=== PATIENT | female | born 1960 | race Caucasian/White ===

== ENCOUNTER 2019-11-15 12:01 | Observation (INO) | payer BC ==
[2019-11-15 13:07] LABS: Absolute Lymphocytes (CBC) 1.3 K/uL (0.7-4.9); Basophils % 0.7 % (0-1.3); Lymphocytes % 27.1 % (15.3-44.8); MPV 9.4 fL (7.6-11.3); RBC Red Blood Cell Count 4.19 M/uL (3.86-4.86)
--- NOTE | 2019-11-15 13:08 | RAD REPORT ---
EXAM DESCRIPTION: RAD - Chest Single View - 11/15/2019 1:01 pm CLINICAL HISTORY: CHEST PAIN Chest pain. COMPARISON: No comparisons FINDINGS: Portable technique limits examination quality. The lungs are grossly clear. The heart is normal in size. No displaced fractures. IMPRESSION: No acute intrathoracic process suspected.
[2019-11-15 13:09] LABS: Protime INR 0.97
[2019-11-15 13:26] LABS: ALT/SGPT 26 U/L (12-78); AST/SGOT 19 U/L (15-37); Albumin 3.5 g/dL (3.4-5.0); Alkaline Phosphatase 62 U/L (45-117); BUN Blood Urea Nitrogen 14 mg/dL (7-18); Bicarbonate 28 mmol/L (21-32); Bilirubin Direct < 0.1 mg/dL (0-0.2); Bilirubin Total 0.3 mg/dL (0.2-1.0); Glucose Level 91 mg/dL (74-106); NT PRO-BNP 38 pg/mL (<125); Potassium 3.9 mmol/L (3.5-5.1); Protein, Total 7.7 g/dL (6.4-8.2); Sodium Level 142 mmol/L (136-145); Troponin (Emerg Dept Use Only) < 0.02 ng/mL (0.0-0.045)
--- NOTE | 2019-11-15 13:57 | ER ---
Nurse's Notes [facility] Name: Abi Jo Age: 59 yrs Sex: Female : 1960 Arrival Date: 11/15/2019 Time: 12:04 Bed 18 Private MD: Diagnosis: Chest pain, unspecified Presentation: 11/14 12:14 Chief complaint: Patient states: Intermittent chest discomfort that began 2 days ago. ss Sent by Dr. Armstrong for further evaluation. Coronavirus screen: Proceed with normal triage. Patient denies a cough. Patient denies shortness of breath or difficulty breathing. Patient denies measured and/or subjective temperature greater than 100.4F prior to today's visit. Patient denies travel on a cruise ship or to a country the [facility] currently lists as an affected area. Patient denies contact with known and/or suspected case of COVID-19. Ebola Screen: Patient denies exposure to infectious person. Patient denies travel to an Ebola-affected area in the 21 days before illness onset. Initial Sepsis Screen: Does the patient meet any 2 criteria? No. Patient's initial sepsis screen is negative. Does the patient have a suspected source of infection? No. Patient's initial sepsis screen is negative. Risk Assessment: Do you want to hurt yourself or someone else? Patient reports no desire to harm self or others. Onset of symptoms was November 13, 2019. 12:14 Method Of Arrival: Ambulatory ss 12:14 Acuity: SCOTT 3 ss Historical: - Allergies: 12:16 No Known Allergies; ss - Immunization history:: Adult Immunizations up to date. - Social history:: Smoking status: Patient denies any tobacco usage or history of. - Family history:: not pertinent. - Hospitalizations: : No recent hospitalization is reported. Screenin:24 Abuse screen: Denies threats or abuse. Nutritional screening: No deficits noted. tw2 Tuberculosis screening: No symptoms or risk factors identified. Fall Risk None identified. Assessment: 12:25 Pain: Pain began 2-3 days ago. tw2 12:25 General: Appears in no apparent distress. obese, well groomed, Behavior is calm, tw2 cooperative, appropriate for age. Pain: Complains of pain in chest Pain radiates to left arm. Neuro: Level of Consciousness is awake, alert, obeys commands, Oriented to person, place, time. Cardiovascular: Reports chest pain, Denies shortness of breath, Heart tones S1 S2 Patient's skin is warm and dry. Respiratory: Airway is patent Respiratory effort is even, unlabored, Respiratory pattern is regular, symmetrical, Breath sounds are clear bilaterally. GI: No signs and/or symptoms were reported involving the gastrointestinal system. Abdomen is round non-distended, obese, Bowel sounds present X 4 quads. : No signs and/or symptoms were reported regarding the genitourinary system. EENT: No signs and/or symptoms were reported regarding the EENT system. Derm: No signs and/or symptoms reported regarding the dermatologic system. Musculoskeletal: Range of motion: intact in all extremities. 14:15 Reassessment: Patient appears in no apparent distress at this time. No changes from tw2 previously documented assessment. Patient and/or family updated on plan of care and expected duration. Pain level reassessed. Patient is alert, oriented x 3, equal unlabored respirations, skin warm/dry/pink. Harshil Campbell, ADMITTING COUNSELOR at bedside at this time, pt states "i really didn't plan on staying but i will talk to him about it". 15:23 Reassessment: Patient appears in no apparent distress at this time. No changes from tw2 previously documented assessment. Patient and/or family updated on plan of care and expected duration. Pain level reassessed. Patient is alert, oriented x 3, equal unlabored respirations, skin warm/dry/pink. 16:30 Reassessment: Patient appears in no apparent distress at this time. No changes from tw2 previously documented assessment. Patient and/or family updated on plan of care and expected duration. Pain level reassessed. Patient is alert, oriented x 3, equal unlabored respirations, skin warm/dry/pink. 17:30 Reassessment: Patient appears in no apparent distress at this time. No changes from tw2 previously documented assessment. Patient and/or family updated on plan of care and expected duration. Pain level reassessed. Patient is alert, oriented x 3, equal unlabored respirations, skin warm/dry/pink. 18:30 Reassessment: Patient appears in no apparent distress at this time. No changes from tw2 previously documented assessment. Patient and/or family updated on plan of care and expected duration. Pain level reassessed. Patient is alert, oriented x 3, equal unlabored respirations, skin warm/dry/pink. 19:38 Reassessment: No changes from previously documented assessment. Patient and/or family bb3 updated on plan of care and expected duration. Pain level reassessed. Reassessment: Patient appears in no apparent distress at this time. Patient and/or family updated on plan of care and expected duration. Pain level reassessed. Patient is alert, oriented x 3, equal unlabored respirations, skin warm/dry/pink. General: Appears in no apparent distress. comfortable. Pain: Complains of pain in anterior aspect of left shoulder and left bicep Pain at worst was 8 out of 10 on a pain scale. 20:31 Reassessment: Patient appears in no apparent distress at this time. Patient and/or bb3 family updated on plan of care and expected duration. Pain level reassessed. Patient is alert, oriented x 3, equal unlabored respirations, skin warm/dry/pink. Patient denies pain at this time. Vital Signs: 12:14 BP 117 / 76; Pulse 64; Resp 16; Temp 97.8(TE); Pulse Ox 99% on R/A; Weight 97.07 kg; ss Height 5 ft. 6 in. (167.64 cm); Pain 0/10; 13:30 BP 109 / 56; Pulse 63; Resp 17; Pulse Ox 99% on R/A; tw2 14:30 BP 111 / 63; Pulse 64; Resp 17; Pulse Ox 100% on R/A; tw2 15:20 BP 102 / 50; Pulse 66; Resp 17; Pulse Ox 99% on R/A; tw2 16:20 BP 91 / 79; Pulse 78; Resp 17; Pulse Ox 99% on R/A; tw2 17:20 BP 98 / 65; Pulse 69; Resp 17; Pulse Ox 100% on R/A; tw2 18:20 BP 101 / 47; Pulse 68; Resp 17; Pulse Ox 98% on R/A; tw2 19:35 BP 106 / 60; Pulse 60; Resp 16; Temp 98; Pulse Ox 100% ; bb3 20:29 BP 114 / 73; Pulse 69; Resp 18; Pulse Ox 100% ; bb3 12:14 Body Mass Index 34.54 (97.07 kg, 167.64 cm) ED Course: 12:04 Patient arrived in ED. mr 12:15 Triage completed. ss 12:16 Danielle Waggoner, RN is Primary Nurse. tw2 12:16 Arm band placed on left wrist. ss 12:24 Placed in gown. campus monitor on. Pulse ox on. NIBP on. tw2 12:24 EKG done, by ED staff. Patient maintains SpO2 saturation greater than 95% on room air. tw2 12:35 Initial lab(s) drawn, by az, sent to lab. Inserted saline lock: 22 gauge in right lt1 antecubital area, using aseptic technique. 13:01 Grover Noonan MD is Attending Physician. rn 13:02 XRAY Chest (1 view) In Process Unspecified. EDMS 13:56 Wil Gilbert DO is Hospitalizing Provider. rn 19:00 Report given to SEDA Abdi. tw2 21:24 No provider procedures requiring assistance completed. bb3 Administered Medications: No medications were administered Outcome: 13:56 Decision to Hospitalize by Provider. rn 21:26 Admitted to Med/surg accompanied by tech, via wheelchair. bb3 21:26 Condition: stable 21:26 Instructed on the need for admit. 22:15 Patient left the ED. sg Signatures: Dispatcher [employer] EDMS Berny Reed RN Shanelle Waters mr Grover Noonan MD MD rn Smirch, Shelby, RN RN Danielle Waggoner RN RN 2 Eloina Meyer [facility] Trinidad Griggs bb3 Corrections: (The following items were deleted from the chart) 14:15 12:25 Pain: tw2 tw2 19:17 19:10 Report given to SEDA Abdi tw2 tw2
--- NOTE | 2019-11-15 13:58 | EDPHYS ---
Physician Documentation [facility] Name: Abi Jo Age: 59 yrs Sex: Female : 1960 Arrival Date: 11/15/2019 Time: 12:04 Bed 18 Private MD: ED Physician Grover Noonan HPI: 11/14 13:53 This 59 yrs old Female presents to ER via Ambulatory with complaints of Chest rn Pain. 13:53 The patient or guardian reports chest pain that is located primarily in the substernal rn area. Onset: 6 day(s) ago. The pain radiates to the left arm. Associated signs and symptoms: Pertinent positives: None. Pertinent negatives: shortness of breath, syncope. The chest pain is described as a heaviness, a pressure. Duration: The patient or guardian reports multiple episodes, that are intermittent. Modifying factors: The symptoms are alleviated by nothing. the symptoms are aggravated by nothing. Severity of pain: At its worst the pain was moderate in the emergency department the pain has improved. The patient has not experienced similar symptoms in the past. Reports new type of chest pain over last 6 days, no fever, + radiates to left arm, no trauma, sent by PCP for cardiac eval. No known cardiac problems. States neg stress test 2-3 years ago. . Historical: - Allergies: 12:16 No Known Allergies; ss - Immunization history:: Adult Immunizations up to date. - Social history:: Smoking status: Patient denies any tobacco usage or history of. - Family history:: not pertinent. - Hospitalizations: : No recent hospitalization is reported. ROS: 13:53 Constitutional: Negative for fever, chills, and weight loss, Eyes: Negative for injury, rn pain, redness, and discharge, Neck: Negative for injury, pain, and swelling, Cardiovascular: + chest pain Respiratory: Negative for shortness of breath, cough, wheezing, and pleuritic chest pain, Abdomen/GI: Negative for abdominal pain, nausea, vomiting, diarrhea, and constipation, MS/Extremity: Negative for injury and deformity, Skin: Negative for injury, rash, and discoloration, Neuro: Negative for headache, weakness, numbness, tingling, and seizure. Exam: 13:53 Constitutional: This is a well developed, well nourished patient who is awake, alert, rn and in no acute distress. Head/Face: Normocephalic, atraumatic. Cardiovascular: Irregular rhythm, regular rate, intact distal pulses Respiratory: Lungs have equal breath sounds bilaterally, clear to auscultation. No increased work of breathing, no retractions or nasal flaring. Abdomen/GI: soft, non-tender Skin: Warm, dry with normal turgor. Normal color with no rashes, no lesions, and no evidence of cellulitis. MS/ Extremity: Pulses equal, no cyanosis. Neurovascular intact. Full, normal range of motion. Equal circumference. Neuro: Awake and alert, GCS 15, oriented to person, place, time, and situation. Cranial nerves II-XII grossly intact. Motor strength 5/5 in all extremities. Sensory grossly intact. Vital Signs: 12:14 BP 117 / 76; Pulse 64; Resp 16; Temp 97.8(TE); Pulse Ox 99% on R/A; Weight 97.07 kg; ss Height 5 ft. 6 in. (167.64 cm); Pain 0/10; 13:30 BP 109 / 56; Pulse 63; Resp 17; Pulse Ox 99% on R/A; tw2 14:30 BP 111 / 63; Pulse 64; Resp 17; Pulse Ox 100% on R/A; tw2 15:20 BP 102 / 50; Pulse 66; Resp 17; Pulse Ox 99% on R/A; tw2 16:20 BP 91 / 79; Pulse 78; Resp 17; Pulse Ox 99% on R/A; tw2 17:20 BP 98 / 65; Pulse 69; Resp 17; Pulse Ox 100% on R/A; tw2 18:20 BP 101 / 47; Pulse 68; Resp 17; Pulse Ox 98% on R/A; tw2 19:35 BP 106 / 60; Pulse 60; Resp 16; Temp 98; Pulse Ox 100% ; bb3 20:29 BP 114 / 73; Pulse 69; Resp 18; Pulse Ox 100% ; bb3 12:14 Body Mass Index 34.54 (97.07 kg, 167.64 cm) MDM: 13:01 Patient medically screened. rn 13:53 Differential diagnosis: acute myocardial infarction, acute pericarditis, coronary rn artery disease chest wall pain, costochondritis, esophagitis, gastritis, pleurisy, pneumothorax. The patient was given aspirin in the Emergency Department. Data reviewed: vital signs, nurses notes, lab test result(s), EKG, radiologic studies, plain films, and as a result, I will admit patient. Counseling: I had a detailed discussion with the patient and/or guardian regarding: the historical points, exam findings, and any diagnostic results supporting the discharge/admit diagnosis, lab results, radiology results, the need for further work-up and treatment in the hospital. Admission orders: after a detailed discussion of the patient's condition and case, the admit orders are written by me. ED course: Admitted to Dr. Gilbert for chest pain w/u, neg trop, no ischemia on ecg. 11/14 12:16 Order name: Basic Metabolic Panel; Complete Time: 13:30 rn 11/14 12:16 Order name: CBC with Diff; Complete Time: :30 rn 11/14 12:16 Order name: LFT's; Complete Time: 13:30 rn 11/14 12:16 Order name: NT PRO-BNP; Complete Time: 13:30 rn 11/14 12:16 Order name: PT-INR; Complete Time: 13:30 rn 11/14 12:16 Order name: Troponin (emerg Dept Use Only); Complete Time: 13:30 rn 11/14 12:16 Order name: XRAY Chest (1 view); Complete Time: 13:30 rn 11/14 12:16 Order name: EKG; Complete Time: 12:17 rn 11/14 12:16 Order name: Cardiac monitoring; Complete Time: 12:35 rn 11/14 12:16 Order name: EKG - Nurse/Tech; Complete Time: 12:35 rn 11/14 12:16 Order name: IV Saline Lock; Complete Time: 12:35 rn 11/14 12:16 Order name: Labs collected and sent; Complete Time: 12:35 rn 11/14 12:16 Order name: O2 Per Protocol; Complete Time: 12:35 rn 11/14 12:16 Order name: O2 Sat Monitoring; Complete Time: 12:36 rn Administered Medications: No medications were administered Disposition: 11/15/19 13:56 Hospitalization ordered by Wil Gilbert for Observation. Preliminary diagnosis is Chest pain, unspecified. - Bed requested for Telemetry/MedSurg (observation). - Status is Observation. sg - Condition is Stable. - Problem is new. - Symptoms have improved. Signatures: Dispatcher [employer] EDBerny Le RN RN sg Grover Noonan MD MD rn Smirch, Shelby, RN RN ss Garcia, Cindy, RN RN cg Corrections: (The following items were deleted from the chart) 21:08 13:56 Hospitalization Ordered by Wil Gilbert DO for Observation. Preliminary cg diagnosis is Chest pain, unspecified. Bed requested for Telemetry/MedSurg (observation). Status is Observation. Condition is Stable. Problem is new. Symptoms have improved. rn 22:15 21:08 11/15/2019 13:56 Hospitalization Ordered by Wil Gilbert DO for Observation. Preliminary diagnosis is Chest pain, unspecified. Bed requested for Telemetry/MedSurg (observation). Status is Observation. Condition is Stable. Problem is new. Symptoms have improved. cg
--- NOTE | 2019-11-15 15:12 | P.HP ---
Certification for Inpatient Patient admitted to: Observation With expected LOS: <2 Midnights Patient will require the following post-hospital care: None Practitioner: I am a practitioner with admitting privileges, knowledge of patient current condition, hospital course, and medical plan of care. Services: Services provided to patient in accordance with Admission requirements found in Title 42 Section 412.3 of the Code of Federal Regulations <Harshil Calabrese - Last Filed: 11/15/19 15:06> Patient admitted to: Observation With expected LOS: <2 Midnights <Wil Gilbert - Last Filed: 11/15/19 17:05> Patient History Date of Service: 11/15/19 Primary Care Provider: Dr. Armstrong Reason for admission: Chest pain History of Present Illness: 59-year-old female with no significant past medical history presented to the emergency department with a 1 day history of left-sided chest pressure that radiates to her left arm. Patient reports that she also feels like she is having an occasional irregular heartbeat. During her evaluation in the emergency department patient was found to have normal cardiac enzymes, an EKG without acute findings, and a normal chest x-ray. Patient reports that she last had a stress test and echocardiogram about 2 years ago that is not been seen since. Patient persisted to have the heaviness in the left chest. This time ED provider reached out to the hospitalist team for further evaluation and management. When I saw the patient in the emergency department she did report to me that she is still having mild left-sided chest heaviness. Patient reports that she has not had pain like this before. Patient states that she does occasionally feel like she has an extra beat or the palpitation as well. The patient will be admitted for further evaluation management of chest pain. Home medications list reviewed: Yes - Past Medical/Surgical History Has patient received pneumonia vaccine in the past: No Diabetic: No Past Medical History: Reviewed- Non-Contributory Past Surgical History: Reviewed- Non-Contributory Psychosocial/ Personal History: Patient lives at home and is able to care for self. - Social History Smoking Status: Never smoker Alcohol use: No CD- Drugs: No Caffeine use: Yes Place of Residence: Home <Harshil Calabrese - Last Filed: 11/15/19 15:06> Date of Service: 11/15/19 History of Present Illness: Patient seen and examined. Case discussed at length with nurse practitioner. Agree with exam, evaluation and plan of care. - Family History Family History: Reviewed- Non-Contributory <Wil Gilbert - Last Filed: 11/15/19 17:05> Review of Systems General: Unremarkable Eyes: Unremarkable ENT: As per HPI Respiratory: Unremarkable Cardiovascular: Chest Pain, As per HPI Gastrointestinal: Unremarkable Genitourinary: Unremarkable Musculoskeletal: Unremarkable Integumentary: Unremarkable Neurological: Unremarkable Lymphatics: Unremarkable <Harshil Calabrese - Last Filed: 11/15/19 15:06> Physical Examination - Physical Exam General: Alert, In no apparent distress, Oriented x3 HEENT: Atraumatic, Normocephalic Neck: Supple Respiratory: Clear to auscultation bilaterally, Normal air movement Cardiovascular: No edema Capillary refill: <2 Seconds Gastrointestinal: Normal bowel sounds, Soft and benign Musculoskeletal: No clubbing Integumentary: No rashes Neurological: Normal gait, Normal speech Lymphatics: No axilla or inguinal lymphadenopathy - Studies Laboratory Data (last 24 hrs) 11/15/19 12:33: PT 11.4, INR 0.97 11/15/19 12:33: WBC 4.9, Hgb 12.8, Hct 39.0, Plt Count 259 11/15/19 12:33: Sodium 142, Potassium 3.9, BUN 14, Creatinine 0.86, Glucose 91, Total Bilirubin 0.3, AST 19, ALT 26, Alkaline Phosphatase 62 <Harshil Calabrese - Last Filed: 11/15/19 15:06> - Physical Exam Cardiovascular: Normal pulses, Regular rate/rhythm Gastrointestinal: No masses, No rebound, No guarding Neurological: Normal strength at 5/5 x4 extr, Normal tone, Normal affect - Studies Laboratory Data (last 24 hrs) 11/15/19 12:33: PT 11.4, INR 0.97 11/15/19 12:33: WBC 4.9, Hgb 12.8, Hct 39.0, Plt Count 259 11/15/19 12:33: Sodium 142, Potassium 3.9, BUN 14, Creatinine 0.86, Glucose 91, Total Bilirubin 0.3, AST 19, ALT 26, Alkaline Phosphatase 62 <Wil Gilbert - Last Filed: 11/15/19 17:05> Assessment and Plan - Plan Assessment Chest pain Plan Chest pain-cardiology will be consulted on this case. Will obtain q. 8 troponin x3. Will obtain echocardiogram. Patient was monitored on telemetry throughout the duration of her hospitalization. DVT prophylaxis with Lovenox. Patient be given daily aspirin. Anticipate patient will be ready for discharge in the next 24-48 hr. Patient blood pressure on the lower end of normal, will not initiate beta-jasmyne therapy. Discharge Plan: Home Plan to discharge in: 24 Hours - Advance Directives Does patient have a Living Will: No Does patient have a Durable POA for Healthcare: No - Code Status/Comfort Care Code Status Assessed: Yes (Patient is full code) Critical Care: No Time Spent Managing Pts Care (In Minutes): 55 <Harshil Calabrese - Last Filed: 11/15/19 15:06> - Plan Patient seen and examined. Agree with plan of care. Continue to monitor telemetry and cardiac enzymes. Will consult cardiology for further evaluation. Anticipate discharge if workup unremarkable. Will obtain echocardiogram to further evaluate. <Wil Gilbert - Last Filed: 11/15/19 17:05>
[2019-11-15] MEDS ORDERED: ONDANSETRON 4 MG/2 ML VIAL IV PRN (22:21)
[2019-11-15] MEDS ORDERED: ACETAMINOPHEN 500 MG TAB PO PRN (22:21)
[2019-11-15 23:42] VITALS: BMI 34.5
--- NOTE | 2019-11-16 07:02 | EKG ---
Test Date: 2019-11-15 Test Time: 12:24:20 Bulldozer/Loader/Compactor/Scraper: JEFF MEASUREMENT RESULTS: Intervals: Rate: 60 MO: 172 QRSD: 90 QT: 416 QTc: 416 [place]: P: 68 MO: 172 QRS: 31 T: 59 INTERPRETIVE STATEMENTS: Normal sinus rhythm Normal ECG No previous ECG available for comparison Electronically Signed On 11-16-19 07:00:11 CDT by Jacques Sierra
[2019-11-16 07:05] LABS: Absolute Lymphocytes (CBC) 1.3 K/uL (0.7-4.9); Basophils % 0.6 % (0-1.3); Lymphocytes % 31.9 % (15.3-44.8); MPV 9.1 fL (7.6-11.3); RBC Red Blood Cell Count 4.45 M/uL (3.86-4.86)
[2019-11-16 07:24] LABS: Magnesium 2.1 mg/dL (1.8-2.4)
[2019-11-16 07:39] LABS: Thyroid Stimulating Hormone 5.39 uIU/mL (0.360-3.740)
[2019-11-16] MEDS ORDERED: REGADENOSON 0.4 MG/5 ML SYR IV ONE (08:18)
[2019-11-16] MEDS ORDERED: ENOXAPARIN 40 MG/0.4 ML SQ SCH (09:00)
[2019-11-16] MEDS ORDERED: ASPIRIN EC 81 MG TAB PO SCH (09:00)
[2019-11-16 09:51] VITALS: O2SAT 98
--- NOTE | 2019-11-16 11:34 | RAD REPORT ---
EXAM DESCRIPTION: NM - Rest Stress Cardiac Imaging - 11/16/2019 10:57 am CLINICAL HISTORY: Chest pain. COMPARISON: None. TECHNIQUE: The patient was administered approximately 10mCi of Tc 99m Sestamibi prior to resting SPE CT imaging of the heart. The patient was then administered approximately 30 mCi of Tc 99m Sestamibi f ollowing exercise or pharmacologic stress. Multiplanar SPECT images were reviewed. FINDINGS: There is uniformity of radiotracer uptake involving the entire left ventricular myocardiu m on rest and stress images. The left ventricular ejection fraction equals 65% IMPRESSION: Negative for a myocardial perfusion defect
--- NOTE | 2019-11-16 11:53 | P.DS ---
Admission Date: 11/15/19 Discharge Date: 11/16/19 Primary Care Provider: Dr. Armstrong Disposition: ROUTINE DISCHARGE Discharge Condition: GOOD Reason for Admission: Chest pain Consultations: Cardiology-Dr. Sierra Procedures: Cardiac stress test: FINDINGS: There is uniformity of radiotracer uptake involving the entire left ventricular myocardium on rest and stress images. The left ventricular ejection fraction equals 65% IMPRESSION: Negative for a myocardial perfusion defect Medical problem list: Chest pain atypical suspect musculoskeletal Possible underlying GERD Subclinical hypothyroidism B12 deficiency Brief History of Present Illness: 59-year-old female presented to the emergency room with chest pain. Patient was admitted for further evaluation. Hospital Course: Patient presented with chest pain. Patient was admitted for further evaluation. No significant EKG changes noted. Cardiac enzymes unremarkable. Patient seen and evaluated by Cardiology. Cardiac stress test was performed. This showed no stress-induced ischemia with normal ejection fraction. No further cardiac intervention was required. Chest pain likely related to musculoskeletal versus GI. Patient may have underlying GERD. At discharge she will continue with Pepcid 20 mg 1 pill twice daily. Patient may take Tylenol as needed for pain. Patient may follow up with cardiology in 1 month to follow up this hospitalization it if chest pain persists. Patient would benefit with GI evaluation as an outpatient. Patient found to have a slightly elevated tsh with normal free T4. Patient may have underlying subclinical hypothyroidism. Recommend to recheck lab-tsh and free T4 in 4-6 weeks. Further evaluation and follow up will be needed with her PCP. Patient with underlying B12 deficiency. At discharge she may continue with her medication. Vital Signs/Physical Exam: Temp Pulse Resp BP Pulse Ox 97.1 F 61 16 104/56 L 98 11/16/19 08:00 11/16/19 08:00 11/16/19 08:00 11/16/19 08:00 11/16/19 08:00 General: Alert, In no apparent distress, Oriented x3, Cooperative HEENT: Atraumatic Neck: Supple Respiratory: Clear to auscultation bilaterally, Normal air movement Cardiovascular: Normal pulses, Regular rate/rhythm Gastrointestinal: Normal bowel sounds, No tenderness, No masses, No rebound, No guarding Musculoskeletal: No erythema, No tenderness, No warmth Integumentary: No tenderness/swelling, No erythema, No warmth, No cyanosis Neurological: Normal speech, Normal strength at 5/5 x4 extr, Normal tone, Normal affect Laboratory Data at Discharge: WBC 4.2 K/uL (4.3-10.9) L D 11/16/19 06:51 Hgb 13.4 g/dL (12.0-15.0) 11/16/19 06:51 Hct 41.0 % (36.0-45.0) 11/16/19 06:51 Plt Count 248 K/uL (152-406) 11/16/19 06:51 PT 11.4 SECONDS (9.5-12.5) 11/15/19 12:33 INR 0.97 11/15/19 12:33 Sodium 142 mmol/L (136-145) 11/16/19 06:51 Potassium 4.0 mmol/L (3.5-5.1) 11/16/19 06:51 BUN 14 mg/dL (7-18) 11/16/19 06:51 Creatinine 0.85 mg/dL (0.55-1.3) 11/16/19 06:51 Glucose 92 mg/dL (74-106) 11/16/19 06:51 Magnesium 2.1 mg/dL (1.8-2.4) 11/16/19 06:51 Total Bilirubin 0.3 mg/dL (0.2-1.0) 11/15/19 12:33 AST 19 U/L (15-37) 11/15/19 12:33 ALT 26 U/L (12-78) 11/15/19 12:33 Alkaline Phosphatase 62 U/L (45-117) 11/15/19 12:33 Troponin I < 0.02 ng/mL (0.0-0.045) 11/16/19 06:51 Home Medications: Cyanocobalamin (Vitamin B-12) [Vitamin B-12] 1,000 mcg PO DAILY 11/15/19 Famotidine [Pepcid] 20 mg PO BID #60 tab 11/16/19 New Medications: Famotidine [Pepcid] 20 mg PO BID #60 tab Patient Discharge Instructions: 1. Recommend follow up with PCP in 1 week to follow up this hospitalization. 2. Patient presented with chest pain. Patient was admitted for further evaluation. No significant EKG changes noted. Cardiac enzymes unremarkable. Patient seen and evaluated by Cardiology. Cardiac stress test was performed. This showed no stress-induced ischemia with normal ejection fraction. No further cardiac intervention was required. Chest pain l ikely related to musculoskeletal versus GI. Patient may have underlying GERD. At discharge she will continue with Pepcid 20 mg 1 pill twice daily. Patient may take Tylenol as needed for pain. Patient may follow up with cardiology in 1 month to follow up this hospitalization it if chest pain persists. Patient would benefit with GI evaluation as an outpatient. 3. Patient found to have a slightly elevated tsh with normal free T4. Patient may have underlying subclinical hypothyroidism. Recommend to recheck lab-tsh and free T4 in 4-6 weeks. Further evaluation and follow up will be needed with her PCP. 4. Patient with underlying B12 deficiency. At discharge she may continue with her medication. Diet: AHA Activity: Ad mayco Time spent managing pt's care (in minutes): 55
--- NOTE | 2019-11-16 11:56 | TREADPHA ---
DX: CHEST PAIN Date of Study: 11/16/2019 Ht: 5' 6 " Wt: 214 lb 0 oz Consulting Physician: KIRBY MEDICATIONS: TYLENOL, ASPIRIN, LOVENOX, ZOFRAN HISTORY: 59 YEAR OLD FEMALE WITH COMPLAINTS OF CHEST PAIN. NO MEDICAL HISTORY, NON SMOKER, NON DRINKER. PHYSICIAL EXAMINATION: RESTING B.P.: 98/58 RESTING H.R.: 60 RESTING EKG: NORMAL PROTOCOL: LEXISCAN EXERCISE TIME: 3:30 B.P. AT PEAK STRESS: 112/60 IMPRESSION: LEXISCAN INJECTED, FOLLOWED BY CARDIOLITE PER PROTOCOL, SEE NUCLEAR MEDICINE REPORT. NO SUPRAVENTRICULAR TACHYCARDIA, VENTRICULAR TACHYCARDIA, PREMATURE ATRIAL COMPLEXES OR PREMATURE VENTRICULAR COMPLEXES. PATIENT REPORTS CHEST PAIN 4/10.
[2019-11-16 12:24] VITALS: BP 99/58; TEMP 97.2
--- NOTE | 2019-11-16 23:51 | CON ---
Date of Consultation: 11/16/[address] Gilbert on 11/15/2019. Reason For Consultation: Chest pain. History Of Present Illness: Ms. Jo is a 59-year-old woman without any significant past medical hist ory. She works for the school. Has been having chest pain for 2 days and occasional palpitations. She mostly felt like her arm was very heavy. Denied any nausea, vomiting, diaphoresis, PND, orthopne a, pedal edema, or syncope. Denied any fever or chills or cough. By the time I saw her she already had a negative troponin, EKG, chest x-ray, and BNP as well as CPKs and MBs. Allergies: HER ALLERGIES INCLUDE TRAMADOL. Review of Systems: Negative. Social History: Negative. Family History: Positive for heart disease. Past Medical History: Negative. Medications: None. Physical Examination: Vital Signs: Stable, afebrile. HEENT: Negative. Neck: Supple with no bruit. Chest: Clear. Cardiac: Revealed a regular rhythm and rate. No murmurs, gallops, or rubs. Abdomen: Benign. Extremities: Revealed no clubbing, cyanosis, or edema. Diagnostic Data: Negative. Impression And Plan: Chest pain, atypical. The left arm heaviness is concerning. She has a strong family history of heart disease. Echocardiogram and Lexiscan are pending. We will see what those sh ows prior to making final decisions. If these are negative, I would consider cervical spondylosis as a diagnosis. I will discuss the case further with Dr. Gilbert. CARA/YUNIELL Voice ID: [id number] Report ID: [id number]
== END 2019-11-16 12:39 | disposition home or self-care (01) ==
LOC: ER 12:01 → ERHOLD 17:48 → 2ND 21:26
PROVIDERS: ADMIT Family Medicine; ATTEND Family Medicine
DX: R07.89 Other chest pain (principal); E03.9 Hypothyroidism, unspecified; E53.8 Deficiency of other specified B group vitamins
CPT/HCPCS: 93005; 93017; 85025 ×2; 80048 ×2; 36415; 83735; 85610; 80076; 84443; 84484 ×3; 84439; 83880; 71045; 78452; 99285; J2785; A9500; G0378 ×2; J1650

== ENCOUNTER 2020-01-27 06:28 | Day surgery (SDC) | payer BC ==
[2020-01-21 12:33] LABS: Absolute Lymphocytes (CBC) 1.3 K/uL (0.7-4.9); Basophils % 0.5 % (0-1.3); Hematocrit 40.8 % (36.0-45.0); Lymphocytes % 28.6 % (15.3-44.8); RBC Red Blood Cell Count 4.38 M/uL (3.86-4.86)
[2020-01-21 12:42] LABS: Protime INR 0.93
[2020-01-21 13:18] LABS: Urine Appearance CLEAR; Urine Bilirubin NEGATIVE (NEG); Urine Blood NEGATIVE (NEG); Urine Color YELLOW; Urine Glucose NEGATIVE (NEG); Urine Protein NEGATIVE (NEG); Urine Specific Gravity 1.025 (1.005-1.030); Urine Urobilinogen 0.2 mg/dL (0.2-1.0); Urine pH 5.5 (5.0-7.0)
[2020-01-21 13:25] LABS: Urine Microscopic Reflex ORDER UMIC
[2020-01-21 13:46] LABS: Urine Bacteria <20 /HPF (<20); Urine Culture Reflex Order NOT NEEDED; Urine Mucus LIGHT /HPF (NONE SEEN); Urine RBC NONE SEEN /HPF (NONE SEEN)
[2020-01-27] MEDS ORDERED: Ringers Lactate 1,000 ML IV ONE ×2 (06:55→11:16)
[2020-01-27] MEDS ORDERED: CEFAZOLIN/SWI 2gm 2 GM/20 ML SYR ONE (06:55)
[2020-01-27] MEDS ORDERED: SCOPOLAMINE HYDROBROMIDE PATCH TD ONE (06:55)
[2020-01-27] MEDS ORDERED: dexAMETHasone 10 MG/ML VIAL ONE (07:18)
[2020-01-27] MEDS ORDERED: LIDOCAINE 2% MPF 5 ML VIAL ONE (07:18)
[2020-01-27] MEDS ORDERED: KETAMINE HCL 500 MG/5 ML VIAL ONE (07:18)
[2020-01-27] MEDS ORDERED: ROCURONIUM 50 MG/5 ML VIAL IV ONE (07:18)
[2020-01-27] MEDS ORDERED: propofoL 200 MG/20 ML VIAL IV ONE (07:18)
[2020-01-27] MEDS ORDERED: FENTANYL CITR 250 MCG/5 ML ONE (07:18)
[2020-01-27] MEDS ORDERED: MIDAZOLAM HCL 2 MG/2 ML INJ ONE (07:18)
[2020-01-27] MEDS ORDERED: ONDANSETRON 4 MG/2 ML VIAL ONE ×2 (07:19→12:29)
[2020-01-27] MEDS ORDERED: NA CHLORIDE 0.9% 100 ML IV ONE (07:45)
[2020-01-27] MEDS ORDERED: CEFAZOLIN/SWI 1gm 1 GM/10 ML SYR ONE (07:46)
[2020-01-27] MEDS ORDERED: BUPIVACAINE 0.25% PF 30 ML VIAL ONE (07:46)
[2020-01-27] MEDS ORDERED: EPHEDRINE SULF 50 MG/ML VIAL ONE (08:17)
[2020-01-27] MEDS: VASOPRESSIN 20 UNIT/ML VIAL ONE ×3 (09:13→10:45)
[2020-01-27] MEDS ORDERED: GLYCOPYRROLATE 0.2 MG/ML SYR ONE (11:30)
[2020-01-27] MEDS ORDERED: NEOSTIGMINE 1 MG/ML -5 ML ONE (11:30)
[2020-01-27] MEDS: HYDROMORPHONE HCL 1 MG/ML INJ ONE ×3 (12:06→12:17)
[2020-01-27] MEDS ORDERED: HYDROMORPHONE HCL 1 MG/ML INJ ONE (12:29)
[2020-01-27] MEDS ORDERED: PROMETHAZINE INJ 25 MG/ML AMP ONE (13:37)
[2020-01-27] MEDS ORDERED: HYDROCODONE/APAP 7.5/325 MG TAB ONE ×2 (14:12→17:26)
[2020-01-27 17:34] VITALS: BP 93/44; TEMP 97.8; O2SAT 94
--- NOTE | 2020-01-27 20:36 | OP ---
Date of Procedure: 01/27/2020 Surgeon: Sherlyn Clark MD Radiation Control Worker: Allison Gurrola. Preoperative Diagnoses: Pelvic pain, uterovaginal prolapse, stage I rectocele, perineal body defect, fibroid. Postoperative Diagnoses: Pelvic pain, uterovaginal prolapse, stage I rectocele, perineal body defect , fibroid. Procedures Performed: Total laparoscopic hysterectomy, bilateral salpingo-oophorectomy, uterosacral suspension, colpopexy, cystoscopy, posterior wall repair (rectocele repair and perineal body defect r epair). Anesthesia: General endotracheal. Estimated Blood Loss: Minimal. Specimens: Uterus, bilateral tubes and ovaries. Complications: No complications. Drains: No drains. Condition: The patient's condition, stable. Findings: Uterine prolapse with point C at -3. After the suspension, the point C was -7. Then post eriorly, site-specific posterior rectovaginal septal defect was noted and repaired. Avulsion from th e perineal body of the distal rectovaginal septum on the left side. The L-shaped defect in the perin eal body also was and healed that way and these were repaired without any graft material. Indications: The patient is a 59-year-old with pelvic pain. All GI and urinary workup negative. No other etiologies were found. Endometrial sampling was performed and no endometrial atypia or malign donn was noted. After completely counseling the patient on the chances of improvement of postmenopau sneha pain with a hysterectomy, she understood that 2/3rd of the time the pain will get better, 1/3rd n ot, and of that 35%, 30% of the time that there would not be relief of pain or change, and in 5% of c ases, the pain could be worse. After understanding all this, she consented for the procedure. Then noted uterovaginal prolapse and rectocele and the patient is asymptomatic from it, especially the pos terior defect. So, at the time of the surgery, these were to be fixed. She was consented appropriat ck. The consent was re-verified this morning including bleeding; infection; injury to the bowel, bladder, ureters; chance that there could be a fistula; and that dyspareunia and fistula are very uncommon co mplications. The patient had a significant problem with tramadol, so this has been marked as an allergy. However, she states that hydrocodone has not helped her control pain after her past surgeries. So, she prefe rs not to rather take it and that Tylenol does more than hydrocodone, so she will not be given a pain prescription. She will use ibuprofen q.6 hours and Tylenol q.6 hours. Handout and consent were giv en. She was counseled that she could go home with the catheter, so that she could be discharged home today as this is the only limiting factor at times. So, she will be given a voiding trial postop an d that if she pass, she would go home. If she did not pass, she would be discharged home with a Fole y catheter. Description Of Procedure: After informed consent was verified, she was taken back to the OR, placed in a supine fashion on the operating table. Ancef 2 g were given. SCDs were started. Abdomen, vulv a, vagina, and perineum were prepped and draped in a sterile fashion. Intubated without any problems . Then, pelvic exam was performed consistent with preop. Speculum placed to expose the cervix. A m edium VCare introduced into the uterus and fixed in place. Martin placed to drain the bladder and att ached for retrograde filling. A 1 cm infraumbilical incision was made with a scalpel using the open laparoscopy technique. Fascia was incised, tagged with sutures. S-retractors were placed and Ebony introduced after entering the peritoneum bluntly. After adequate insufflation, site of entry was checked and unremarkable. Upper abdominal surface was completely unremarkable. Gallbladder appeared to be slightly dilated without a ny thickening or inflammation. Liver, upper abdominal surfaces, omentum, all normal. Appendix was w ell visualized and was completely unremarkable. The patient was placed in Trendelenburg. A 5 mm left lower quadrant and right lower quadrant ports w ere placed, suprapubic 10 port was placed without any problems. The tip of the balloon of the VCare had penetrated the myometrium, so this was pulled back and a stitch was placed 0 Vicryl, so there wou ld not be any significant bleeding. No injury to any of the bowel or any adjacent organs barely just past the myometrium. LigaSure was used to take down the IP ligament, mesosalpinx, mesovarium, and the tube. Then, round l igament was taken down to open the broad ligament on the left side. Anterior broad ligament was open ed up to raise the bladder flap all the way to the opposite round ligament and posteriorly taken down to the level of the posterior vaginal cuff. Then, vessels were isolated, taken down on the opposite side. Dissection was started with taking down the utero-ovarian ligament and then went to the infun dibulopelvic ligament. This was taken down and mesosalpinx and the tube were both dissected at the s lucina time. Then, round ligament was taken down, anterior broad ligament opened up, and bladder flap c onnected. Posteriorly, the peritoneum was opened up to the distal right uterosacral. Vessels were s keletonized. Anterior vaginal wall was cleaned up with monopolar and then the bladder dissected down inferiorly at least 1.5 cm from the cup. Then, vessels were taken down on this side. Cardinal liga ments were taken down as well. Circumferential colpotomy with a monopolar hook blade and specimen pu lled out through the vagina. Closure of the vaginal cuff after thorough irrigation and suction was d one. Excellent hemostasis with 0 Vicryl simple sutures on both angles and 3 [id number] in the c entral. There was excellent closure including the connective tissue of both anterior and posterior w alls. Then, PDS suture was taken, the distal part of the right uterosacral after the ureter was identified at least 4 to 5 cm proximal to the attachment from the vagina. The ligament was picked up and 2 stit ches were taken through the ligament and then passed through the posterior vaginal wall, anterior vag inal wall and tied for uterosacral suspension, this was the mid ligament suspension. The ureter was far away and had no kink, and on the left side, the ischial spine had to be palpated through the abdo men and then about 3 cm inferior to this, the uterosacral ligament was picked up, that was a distal m ost visible remnant of the uterosacral, so this was picked up with CT1 needle on a 0 PDS. A figure-o f-eight suture was placed here. Then, this was tacked to the posterior vaginal wall and the anterior vaginal wall on the left side to support the cuff. Once the symmetric support was done on both side s, there was excellent suspension with point C at -7. Then, I left this in place. No further suture s were needed. After cystoscopy was performed with a 17-Welsh sheath, 30-degree lens, normal saline , excellent streams of urine from both ureteric orifices. No damage to the uterus. No damage to the bladder was seen in terms of foreign body like a suture. Thorough visualization of the bladder urot helium was done and no evidence of any tumors. The bladder was drained. Martin was replaced. This a radha was draped. Gloves were changed. Then, went down to remove the trocars at the entry and exit at the fascia and skin. 0.25% Marcaine w as injected at all sites. Then, the gas was desufflated in a close fashion. Fascia closed at the um bilicus with 0 Vicryl tag sutures tied to each other and simple 0 Vicryl stitch at the suprapubic fas cial incision, all skin incisions with interrupted 4-0 Vicryl closure. The posterior vaginal wall was examined. Rectovaginal exam was performed. There was a clear defect in the posterior distal wall. The perineal body was . Widening at the level of this and th en the distal part of the hymenal ring were pulled apart at least 3 cm. Then, distal defect was the avulsion of the wall from the perineal body in the left lateral lower aspect of the compartment. So, dilute vasopressin was injected in the posterior wall perineal body in the distal half. A regina-s haped incision was made with a scalpel and skin and vaginal epithelium was detached, leaving the conn ective tissue intact. Once the defect was well visualized and was dissected all the way to be able t o although look at the remnants of the perineal body, then closure was done with a 2-0 PDS in a glendy nuous running fashion. Perineal body was also reconstructed with the help of this 2-0 PDS and then t he running suture was taken back up and tied. There was excellent reattachment and there was no defe ct on the rectovaginal exam. Then, vaginal epithelium was slightly trimmed, so that the edges oppose d together without any dog-ears and 2-0 Vicryl was used for closure in a continuous running horizonta l mattress fashion and tied above the hymenal opening. Then, the 3-0 Vicryl was used to close that d istal part on the perineal incision. This was closed in a subcutaneous and cuticular fashion and kno t tied inside. Rectal exam negative. No foreign body or trauma to the rectum. The Martin was remove d after bladder was drained. The patient was recovered from anesthesia. Instrument, needle, and spo nge counts were correct at the end of the case. She tolerated the procedure well. EBL was 50. DAVION/RYAN Voice ID: [id number] Report ID: [id number]
== END 2020-01-27 17:25 | disposition home or self-care (01) ==
LOC: OR 06:28
PROVIDERS: ATTEND Obstetrics & Gynecology
PROC: 0UT24ZZ Resection of Bilateral Ovaries, Percutaneous Endoscopic Approach (ICD-10-PCS; 2020-01-27)
PROC: 0UT74ZZ Resection of Bilateral Fallopian Tubes, Percutaneous Endoscopic Approach (ICD-10-PCS; 2020-01-27)
PROC: 0JQC3ZZ Repair Pelvic Region Subcutaneous Tissue and Fascia, Percutaneous Approach (ICD-10-PCS; 2020-01-27)
PROC: 0KQM3ZZ Repair Perineum Muscle, Percutaneous Approach (ICD-10-PCS; 2020-01-27)
PROC: 0USG4ZZ Reposition Vagina, Percutaneous Endoscopic Approach (ICD-10-PCS; 2020-01-27)
PROC: 0UT94ZZ Resection of Uterus, Percutaneous Endoscopic Approach (ICD-10-PCS; principal; 2020-01-27 07:30)
DX: N81.2 Incomplete uterovaginal prolapse (principal); N81.6 Rectocele; K66.8 Other specified disorders of peritoneum; D25.9 Leiomyoma of uterus, unspecified; N88.8 Other specified noninflammatory disorders of cervix uteri; N84.0 Polyp of corpus uteri; N80.0 Endometriosis of uterus; N95.2 Postmenopausal atrophic vaginitis; K59.00 Constipation, unspecified; Z11.59 Encounter for screening for other viral diseases; E03.9 Hypothyroidism, unspecified; Z79.899 Other long term (current) drug therapy
CPT/HCPCS: 57425; 58571; 57250; 85025; 80048; 36415; 86900; 86850; 85610; 86901; 88307; 85730; U0002; J2704; J2550; J2250; J3010; J1100; J1170 ×2; J2710; J0690 ×2; J7120 ×2; J2405 ×2; 81003; 81015

== ENCOUNTER 2020-02-21 09:59 | Emergency (ER) | payer BC ==
--- NOTE | 2020-02-21 12:01 | RAD REPORT ---
EXAM DESCRIPTION: RAD - Humerus Right - 02/21/2020 11:37 am CLINICAL HISTORY: PAIN Trauma, pain COMPARISON: No comparisons FINDINGS: No acute fracture or dislocation seen.
--- NOTE | 2020-02-21 12:01 | RAD REPORT ---
EXAM DESCRIPTION: RAD - Foot Right 3 View - 02/21/2020 11:38 am CLINICAL HISTORY: PAIN COMPARISON: No comparisons FINDINGS: Soft tissue swelling is seen affecting the great toe. Subtle lucency is seen involving the base of the distal phalanx medially suspicious for a nondisplaced fracture.
--- NOTE | 2020-02-21 12:07 | RAD REPORT ---
EXAM DESCRIPTION: RAD - Ribs Left - 02/21/2020 11:38 am CLINICAL HISTORY: PAIN Fall, left-sided chest pain COMPARISON: Chest Single View dated 11/15/2019 FINDINGS: No displaced rib fracture is evident. No aggressive rib lesion.
--- NOTE | 2020-02-21 12:25 | ER ---
Nurse's Notes [facility] Name: Abi Jo Age: 59 yrs Sex: Female : 1960 Arrival Date: 02/21/2020 Time: 10:01 Bed 16 Private MD: Diagnosis: Pain in right upper arm;Other chest pain-left ribs;Fall on same level from slipping, tripping and stumbling;Nondisplaced fracture of distal phalanx of right great toe Presentation: 02/20 10:19 Chief complaint: Left sided chest wall pain and right great toe pain after mechanical hb fall from standing yesterday. Denies LOC. Care prior to arrival: Medication(s) given: Tylenol, at 0930. Mechanism of Injury: Fall from standing position. Trauma event details: [facility] occurred in the [facility], Injury occurred: at home. Injury occurred: February 21, 2020 Injury occurred at: 05:30. 10:19 Acuity: SCOTT 4 hb 10:19 Method Of Arrival: Ambulatory hb 10:20 Coronavirus screen: At this time, the client does not indicate any symptoms associated hb with coronavirus-19. Ebola Screen: No symptoms or risks identified at this time. Initial Sepsis Screen: Does the patient meet any 2 criteria? No. Patient's initial sepsis screen is negative. Does the patient have a suspected source of infection? No. Patient's initial sepsis screen is negative. Risk Assessment: Do you want to hurt yourself or someone else? Patient reports no desire to harm self or others. Onset of symptoms was February 20, 2020. Trauma Activation: Not Applicable Physician: ED Physician; Name: ; Notified At: ; Arrived At: Physician: General Surgeon; Name: ; Notified At: ; Arrived At: Physician: Radiology; Name: ; Notified At: ; Arrived At: Physician: Respiratory; Name: ; Notified At: ; Arrived At: Physician: Lab; Name: ; Notified At: ; Arrived At: Historical: - Allergies: 10:21 No Known Allergies; hb - PSHx: 10:21 Hysterectomy; hb - Immunization history:: Adult Immunizations up to date. - Social history:: Smoking status: Patient denies any tobacco usage or history of. Screenin:20 Abuse screen: Denies threats or abuse. Denies injuries from another. Nutritional jr10 screening: No deficits noted. Tuberculosis screening: No symptoms or risk factors identified. Fall Risk Fall in past 12 months (25 points). No secondary diagnosis (0 pts). No IV (0 pts). Ambulatory Aid- None/Bed Rest/Nurse Assist (0 pts). Gait- Normal/Bed Rest/Wheelchair (0 pts) Mental Status- Oriented to own ability (0 pts). Assessment: 10:20 General: Appears in no apparent distress. Behavior is calm, cooperative, appropriate jr10 for age. Pain: Complains of pain in diaphragm, left breast, left first toe, anterior aspect of right shoulder and right upper arm Pain currently is 7 out of 10 on a pain scale. Quality of pain is described as aching, tender. Neuro: No deficits noted. Level of Consciousness is awake, alert, obeys commands, Oriented to person, place, time, situation, Appropriate for age denies LOC post fall, denies use of blood thinners. Cardiovascular: Reports chest pain, since left anterior chest wall pain s/p mechanical trip and fall yesterday Patient's skin is warm and dry. Pulses are all present. Edema is absent. Rhythm is regular. Respiratory: Reports pain with cough pain with movement pain with respiration Airway is patent Respiratory effort is even, unlabored, Respiratory pattern is regular, symmetrical, Breath sounds are clear bilaterally. GI: No deficits noted. No signs and/or symptoms were reported involving the gastrointestinal system. : No deficits noted. No signs and/or symptoms were reported regarding the genitourinary system. EENT: No deficits noted. No signs and/or symptoms were reported regarding the EENT system. Derm: Bruising that is dark purple, green, on left first toe. Musculoskeletal: Capillary refill < 3 seconds, Range of motion: limited in left great toe Tenderness present in left first toe and right upper arm. Vital Signs: 10:20 BP 117 / 74; Pulse 73; Resp 16; Temp 98.3(O); Pulse Ox 100% ; Weight 88.45 kg; Height 5 hb ft. 6 in. (167.64 cm); Pain 9/10; 10:20 Body Mass Index 31.47 (88.45 kg, 167.64 cm) hb ED Course: 10:01 Patient arrived in ED. ds1 10:20 Triage completed. hb 10:20 Patient has correct armband on for positive identification. Bed in low position. Call jr10 light in reach. Side rails up X 1. 10:21 Arm band placed on. EKG completed in triage. Results shown to MD. hb 10:34 Pito Pedroza PA is PHCP. cp 10:34 Juanito Cao MD is Attending Physician. cp 10:57 Gricel Mazariegos, RN is Primary Nurse. jr10 11:32 XRAY Ribs LEFT In Process Unspecified. EDMS 11:32 XRAY Foot RIGHT 3 View In Process Unspecified. EDMS 11:32 XRAY Humerus RIGHT In Process Unspecified. EDMS 12:27 No provider procedures requiring assistance completed. Patient did not have IV access jr10 during this emergency room visit. Administered Medications: No medications were administered Outcome: 12:24 Discharge ordered by MD. cp 12:54 Patient left the ED. jp3 Signatures: Dispatcher [employer] ED[facility] Katiuska Zambrano ds1 Pito Pedroza PA PA Portia Toledo, SEDA RN Bhavin Bynum jp3 Gricel Mazariegos, SEDA RN jr10
--- NOTE | 2020-02-21 12:25 | EDPHYS ---
Physician Documentation [facility] Name: Abi Jo Age: 59 yrs Sex: Female : 1960 Arrival Date: 02/21/2020 Time: 10:01 Bed 16 Private MD: ED Physician Juanito Cao HPI: 02/20 10:50 This 59 yrs old Female presents to ER via Ambulatory with complaints of Fall cp Injury. 10:50 Details of fall: The patient fell from an upright position, while walking. Onset: The cp symptoms/episode began/occurred yesterday. 10:50 Associated injuries: The patient sustained injury to the chest, specifically the left cp lower lateral rib area, pain with breathing, pain with movement, tenderness, right upper arm, painful injury, right foot, ecchymosis, painful injury. Patient reports trip and fall while walking yesterday. No LOC. Historical: - Allergies: 10:21 No Known Allergies; hb - PSHx: 10:21 Hysterectomy; hb - Immunization history:: Adult Immunizations up to date. - Social history:: Smoking status: Patient denies any tobacco usage or history of. ROS: 11:00 Constitutional: Negative for body aches, chills, fever. cp 11:00 Neck: Negative for pain with movement, pain at rest, stiffness. cp 11:00 Cardiovascular: Positive for chest pain, of the left lower lateral rib area, Negative for edema, palpitations. 11:00 Respiratory: Negative for shortness of breath, wheezing. 11:00 Abdomen/GI: Negative for abdominal pain, nausea, vomiting, and diarrhea. 11:00 Back: Negative for pain at rest, pain with movement. 11:00 MS/extremity: Positive for pain, tenderness, of the right upper arm and right foot. 11:00 Neuro: Negative for altered mental status, dizziness, headache, loss of consciousness, syncope, weakness. 11:00 All other systems are negative. Exam: 11:05 Constitutional: The patient appears in no acute distress, alert, awake, cp non-diaphoretic, non-toxic, well developed, well nourished. 11:05 Head/Face: Normocephalic, atraumatic. cp 11:05 Eyes: Periorbital structures: appear normal, Conjunctiva: normal, no exudate, no injection, Lids and lashes: appear normal, bilaterally. 11:05 ENT: External ear(s): are unremarkable, Nose: is normal, Posterior pharynx: Airway: no evidence of obstruction, patent. 11:05 Neck: C-spine: vertebral tenderness, is not appreciated, crepitus, is not appreciated, ROM/movement: is normal, is supple, without pain, no range of motions limitations. 11:05 Chest/axilla: Inspection: normal, Palpation: crepitus, is not appreciated, tenderness, that is moderate, of the left lower lateral rib area. 11:05 Cardiovascular: Rate: normal, Rhythm: regular, Edema: is not appreciated, JVD: is not appreciated. 11:05 Respiratory: the patient does not display signs of respiratory distress, Respirations: normal, no use of accessory muscles, no retractions, labored breathing, is not present, Breath sounds: are clear throughout, no decreased breath sounds. 11:05 Abdomen/GI: Inspection: abdomen appears normal, Palpation: abdomen is soft and non-tender, in all quadrants. 11:05 Back: vertebral tenderness, is not appreciated. 11:05 Musculoskeletal/extremity: Extremities: grossly normal except: noted in the right upper arm: pain, tenderness, There is no evidence of decreased ROM, deformity, noted in the right foot: ecchymosis, pain, swelling, tenderness. 11:05 Neuro: Orientation: to person, place \T\ time. Mentation: is normal, Motor: moves all fours, strength is normal. Vital Signs: 10:20 BP 117 / 74; Pulse 73; Resp 16; Temp 98.3(O); Pulse Ox 100% ; Weight 88.45 kg; Height 5 hb ft. 6 in. (167.64 cm); Pain 9/10; 10:20 Body Mass Index 31.47 (88.45 kg, 167.64 cm) hb MDM: 10:43 Patient medically screened. cp 11:20 Differential diagnosis: closed head injury, contusion, fracture, multiple trauma. cp 12:23 Data reviewed: vital signs, nurses notes, radiologic studies, plain films. cp 12:23 Counseling: I had a detailed discussion with the patient and/or guardian regarding: the cp historical points, exam findings, and any diagnostic results supporting the discharge/admit diagnosis, radiology results, the need for outpatient follow up, a family practitioner, to return to the emergency department if symptoms worsen or persist or if there are any questions or concerns that arise at home. 12:28 ED course: Review of [place] prescription monitor website show no active RXs for narcotic cp medications. 02/20 10:45 Order name: XRAY Ribs LEFT; Complete Time: 12:15 cp 02/20 12:15 Interpretation: Report reviewed. cp 02/20 10:45 Order name: XRAY Foot RIGHT 3 View; Complete Time: 12:15 cp 02/20 12:15 Interpretation: Report reviewed. cp 02/20 11:14 Order name: XRAY Humerus RIGHT; Complete Time: 12:15 [id number] Administered Medications: No medications were administered Disposition: 13:00 Chart complete. 13:54 Co-signature as Attending Physician, Juanito Cao MD I agree with the assessment and kdr plan of care. Disposition: 02/21/20 12:24 Discharged to Home. Impression: Pain in right upper arm, Other chest pain - left ribs, Fall on same level from slipping, tripping and stumbling, Nondisplaced fracture of distal phalanx of right great toe. - Condition is Stable. - Discharge Instructions: Rib Contusion, Toe Fracture. - Prescriptions for Ibuprofen 800 mg Oral Tablet - take 1 tablet by ORAL route every 8 hours As needed take with food; 30 tablet. Tylenol- Codeine #3 300-30 mg Oral Tablet - take 2 tablets by ORAL route every 6 hours As needed; 20 tablet. - Medication Reconciliation Form, Thank You Letter, Antibiotic Education, Prescription Opioid Use form. - Follow up: Private Physician; When: 2 - 3 days; Reason: Recheck today's complaints. - Problem is new. - Symptoms have improved. Signatures: Dispatcher [employer] EDMS Juanito Cao MD MD kdr Pito Pedroza PA PA cp Portia Hdz, SEDA RN Bhavin Cervantes [email or web address] Corrections: (The following items were deleted from the chart) 12:54 12:24 02/21/2020 12:24 Discharged to Home. Impression: Pain in right upper arm; Other jp3 chest pain - left ribs; Fall on same level from slipping, tripping and stumbling; Nondisplaced fracture of distal phalanx of right great toe. Condition is Stable. Forms are Medication Reconciliation Form, Thank You Letter, Antibiotic Education, Prescription Opioid Use. Follow up: Private Physician; When: 2 - 3 days; Reason: Recheck today's complaints. Problem is new. Symptoms have improved. cp
== END 2020-02-21 12:54 | disposition home or self-care (01) ==
LOC: ER 09:59
DX: S92.424A Nondisplaced fracture of distal phalanx of right great toe, initial encounter for closed fracture (principal); R07.89 Other chest pain; W01.0XXA Fall on same level from slipping, tripping and stumbling without subsequent striking against object, initial encounter; Y93.01 Activity, walking, marching and hiking; Y92.9 Unspecified place or not applicable
CPT/HCPCS: 99282